=== PATIENT | male | born 1985 | race Caucasian/White ===

== ENCOUNTER 2018-11-01 01:44 | Emergency (ER) | payer MEDICAID ==
[~2018-11-01] VITALS: Ht 165.1 cm; Wt 84.0 kg
[2018-11-01 08:45] VITALS: BP 109/68
== END 2018-11-01 09:00 | disposition home or self-care (01) ==
LOC: ER 01:44
DX: R06.02 Shortness of breath (principal); R42 Dizziness and giddiness; F12.10 Cannabis abuse, uncomplicated
CPT/HCPCS: 71045; 93005; 99283